=== PATIENT | female | born 1955 | race Caucasian/White ===

== ENCOUNTER 2021-03-17 08:03 | Observation (INO) ==
[2021-03-17] MEDS ORDERED: Ringers Solution, Lactated 1,000 ML IVC SCH ×2 (08:15→15:39)
[2021-03-17] MEDS ORDERED: CeFAZolin Syr 2,000MG/20 ML 2,000 MG/20 ML SYRINGE IVPB ONE (08:15)
[2021-03-17] MEDS ORDERED: *HR* FentaNYL (PF) 100 MCG/2 ML VIAL ONE (08:47)
[2021-03-17] MEDS ORDERED: *HR* Midazolam HCl 2 MG/2 ML VIAL ONE (08:47)
[2021-03-17] MEDS ORDERED: *HR* Propofol 200 MG/20 ML VIAL IVP ONE (08:47)
[2021-03-17] MEDS ORDERED: Lidocaine -MPF 2% 5 ML VIAL ONE (08:49)
[2021-03-17] MEDS ORDERED: Ondansetron 4 MG/2 ML VIAL IVP PRN ×2 (08:52→15:39)
[2021-03-17] MEDS ORDERED: *HR* OxyCODONE Immed Rel 5 MG TABLET PO PRN ×3 (08:52→15:39)
[2021-03-17] MEDS ORDERED: *HR* HYDROmorphone PF 0.5 MG/0.5 ML SYRINGE IVP PRN (08:52)
[2021-03-17] MEDS ORDERED: Famotidine 20 MG/2 ML VIAL IVP ONE (09:00)
[2021-03-17] MEDS ORDERED: Pregabalin 75 MG CAPSULE PO ONE (09:00)
[2021-03-17] MEDS ORDERED: Acetaminophen IV 1,000 MG/100 ML BAG IVPB ONE (09:00)
[2021-03-17] MEDS ORDERED: *HR* Succinylcholine 200 MG/10 ML VIAL IVP ONE (09:35)
[2021-03-17] MEDS ORDERED: Vancomycin 1,000 MG VIAL ONE (09:36)
[2021-03-17] MEDS ORDERED: Polymyxin B Sulfate 500,000 UNIT, Sodium Chloride IRRigation 1,000 ML IR ONE (09:45)
[2021-03-17] MEDS ORDERED: Ketamine HCL *QUVA* 50mg (1mL) SYRINGE ONE (09:54)
[2021-03-17] MEDS ORDERED: Ondansetron 4 MG/2 ML VIAL ONE (10:18)
[2021-03-17] MEDS ORDERED: *HR* Rocuronium Bromide 50 MG/5 ML VIAL ONE (10:39)
[2021-03-17] MEDS ORDERED: EPHEDrine 50 MG/ML VIAL ONE (10:47)
[2021-03-17] MEDS ORDERED: *HR* HYDROMORPHONE 2 MG/ML VIAL ONE (12:37)
[2021-03-17] MEDS ORDERED: *HR* HYDROcodone/Acet 5/325 mg TABLET PO PRN (15:08)
[2021-03-17] MEDS ORDERED: Naloxone 0.4 MG/ML INJ IVP PRN (15:39)
[2021-03-17] MEDS ORDERED: Acetaminophen 325 MG TABLET PO PRN (15:39)
[2021-03-17] MEDS ORDERED: CeFAZolin 2 GM/120 ML BAG IVPB SCH (16:00)
[2021-03-17] MEDS: CeFAZolin 2 GM/120 ML BAG IVPB SCH (17:29)
[2021-03-17] MEDS: Pregabalin 75 MG CAPSULE PO SCH (19:40)
[2021-03-17] MEDS: *HR* HYDROcodone/Acet 5/325 mg TABLET PO PRN (19:41)
[2021-03-18] MEDS: CeFAZolin 2 GM/120 ML BAG IVPB SCH (02:18)
[2021-03-18] MEDS: *HR* HYDROcodone/Acet 5/325 mg TABLET PO PRN ×3 (02:18→21:40)
[2021-03-18] MEDS: Pregabalin 75 MG CAPSULE PO SCH ×2 (07:51→21:25)
[2021-03-18] MEDS: atenoloL 25 MG TABLET PO SCH (07:51)
[2021-03-18] MEDS: BUDESONIDE 9 MG PO SCH (07:52)
[2021-03-18] MEDS ORDERED: D5% in Water 1,000 ML IVC PRN (11:44)
[2021-03-18] MEDS ORDERED: Dextrose Gel 15 GM/37.5 ML TUBE PO PRN ×2 (11:44)
[2021-03-18] MEDS ORDERED: *HR* Dextrose 50 % in Water (Syg) 50 ML SYRINGE IVP PRN (11:44)
[2021-03-18] MEDS: Insulin LISPRO 300 UNITS/3 ML VIAL SUBQ SCH ×2 (12:25→16:07)
[2021-03-18] MEDS ORDERED: Insulin LISPRO 300 UNITS/3 ML VIAL SUBQ SCH (21:00)
[2021-03-19] MEDS: *HR* HYDROcodone/Acet 5/325 mg TABLET PO PRN (04:20)
[2021-03-19 06:52] VITALS: BP 107/71; PULSE 83; TEMP 98; O2SAT 98
[2021-03-19] MEDS: Insulin LISPRO 300 UNITS/3 ML VIAL SUBQ SCH (08:05)
[2021-03-19] MEDS: Pregabalin 75 MG CAPSULE PO SCH (08:32)
[2021-03-19] MEDS: atenoloL 25 MG TABLET PO SCH (08:55)
[2021-03-19] MEDS: BUDESONIDE 9 MG PO SCH (10:03)
== END 2021-03-19 11:59 | disposition home or self-care (01) ==
LOC: SDCAOSI 08:03 → 4WAOSI 08:03
PROVIDERS: ADMIT Orthopaedic Surgery Orthopaedic Surgery of the Spine; ATTEND Orthopaedic Surgery Orthopaedic Surgery of the Spine